=== PATIENT | male | born 1950 | race Caucasian/White ===

== ENCOUNTER → 2018-03-03 | Outpatient (REF) | payer MEDICAID, MEDICARE | LOC: M LAB REF 14:05 | DX: C44.601 Unspecified malignant neoplasm of skin of unspecified upper limb, including shoulder (principal) | CPT/HCPCS: 88305 ==

== ENCOUNTER → 2018-04-06 | Outpatient (REF) | payer MEDICARE, MEDICAID ==
[2018-04-06 17:54] LABS: APPEARANCE, URINE CLEAR (CLEAR); BACTERIA, URINE AUTO NEGATIVE (NEGATIVE); BILIRUBIN, URINE AUTO NEGATIVE (NEGATIVE); BLOOD, URINE BLOOD 1+ (NEGATIVE); COLOR, URINE YELLOW (YELLOW); GLUCOSE, URINE (UA) AUTO 3+ mg/dL (NEGATIVE); KETONE, URINE AUTO NEGATIVE (NEGATIVE); LEUKOCYTE ESTERASE, URINE AUTO TRACE (NEGATIVE); MUCUS, URINE SMALL (NEGATIVE); NITRITE, URINE AUTO NEGATIVE (NEGATIVE); PROTEIN, URINE AUTO NEGATIVE (NEGATIVE); RBC, URINE AUTO 0 /HPF (0-3); SPECIFIC GRAVITY URINE AUTO 1.023 (1.002-1.035); SQUAMOUS EPITHELIAL CELL UR AU 0 /HPF (0-6); WBC, URINE AUTO 1 /HPF (0-3)
== END ==
LOC: M SMT 17:12
DX: R31.0 Gross hematuria (principal)
CPT/HCPCS: 81001

== ENCOUNTER → 2019-09-12 | Outpatient (CLI) | payer MEDICARE, MEDICAID ==
--- NOTE | 2019-09-14 10:40 | REP ---
WHOLE BODY OCTREOTIDE NUCLEAR SCAN WITH SPECT IMAGING: COMPARISON: 10/14/2010 TECHNIQUE: Following the intravenous administration of 6.2 millicuries indium 111 Octreoscan, 4-hours, 24-hour, and 48-hour whole body imaging is performed in multiple projections. SPECT imaging is also performed at 24 hours post injection. Normal expected activity in the liver, spleen, kidneys and bladder is unchanged. There is some colonic activity on the 24-hour and 48-hour images. No new abnormal uptake is seen, with no change since prior study. IMPRESSION: Normal octreotide nuclear scan. No change since the prior study. No abnormal uptake. Electronically Signed by Shaw Lazcano MD 09/14/2019 12:56 P
== END ==
LOC: M RAD 08:27
PROVIDERS: ATTEND Internal Medicine Hematology & Oncology
DX: C4A.9 Merkel cell carcinoma, unspecified (principal)
CPT/HCPCS: 78804; A9572

== ENCOUNTER 2020-03-21 19:19 | Inpatient (IN) | payer MEDICARE, MEDICAID ==
[~2020-03-21] VITALS: Ht 175.3 cm; Wt 107.3 kg
[2020-03-21 21:40] VITALS: BP 172/90
--- NOTE | 2020-03-21 22:23 | HPEPDOC ---
[facility] Medical History & Physical Date of Admission Mar 21, 2020 Date of Service: Mar 21, 2020 Attending Physician: NICOLE MAKI MD History and Physical TIME OF SERVICE: 11:50 PM CHIEF COMPLAINT: Tunnel vision, right facial paracentesis, weakness HISTORY OF PRESENT ILLNESS: This 70-year-old gentleman presented to [facility] with complaints of tunnel vision that started at around 11:30 in the morning. He also noticed that the left side of his face felt heavy, like there was a hand resting on his face, he felt very dizzy, short of breath & weak. His blood pressure was about 173/87 and NIH stroke score was 1. WBCs 5.1, hemoglobin 9, platelets 199, sodium 143, potassium 4.9, chloride 107, bicarbonate 22.8, BUN 71, creatinine 3.32, glucose 232, calcium 8, anion gap 13, Magnesium 1.5 , AST 38, ALT 51, alkaline phosphatase 217, INR 1.2, & troponin was 0.09. The chest xray was unremarkable. CT of the head only confirmed the presence of an old left basal ganglia stroke but no acute process, but he was outside of the tPA window. Providers at [facility] requested transfer for higher level of care. At the time of my assessment the patient reported that his vision had returned to normal, but he continued to have an abnormal sensation at the right side of his face. REVIEW OF SYSTEMS: 12 point review of systems negative except as listed in HPI PAST MEDICAL/ SURGICAL HISTORY: Left basal ganglia CVA/ multiple TIAs Chronic Eliquis use (not sure if he has afib ?) Chronic HTN [place] cell carcinoma IDDM Chronic thrombocytopenia Chronic hypomagnesemia Dyslipidemia Steatohepatitis PUD/GERD CKD unknown stage CAD Obesity Seizure Disorder ? Vertigo Unspecified type of CHF (suspect systolic) Hypomagnesemia Resection of basal cell skin cancer Rotator cuff surgery Appendectomy and cholecystectomy SOCIAL HISTORY: Former smoker FAMILY HISTORY: Diabetes, Arthritis, uterine, prostate and testicular Cancer ALLERGIES: Please see below. HOME MEDICATIONS: Please see below. PHYSICAL EXAMINATION: Vital Signs Date Time Temp Pulse Resp B/P (MAP) Pulse Ox O2 Delivery O2 Flow Rate FiO2 03/21/20 21:40 97.8 81 18 172/90 (117) 99 Room Air GEN: well-nourished / well developed/ NAD INTEGUMENT: not flushed/ stasis dermatitis changes at lower extremities HEENT: lips acyanotic /mucus membranes moist and pink / sclera anicteric CVS: RRR/NMRG/ radial and dorsalis pedis pulses intact / trace lower extremity edema LUNGS: able to speak full sentences without stopping to take a breath / no coughing / lungs are clear to auscultation bilaterally on room air ABDOMEN: Contour ( obese ) / soft & not tender with palpation MSK/EXTREMITIES: NCAT / range of motion intact except at left shoulder were ROM is limited because of pain NEURO: CN 2-12 are intact / speech is not dysarthric / strength is 5/5 except left arm where his ability to flex his shoulder is limited by shoulder pain / no finger to nose dysmetria PSYCH: alert and oriented to person place and time/ able to understand and follow all commands LABORATORY DATA: See HPI IMAGING: See HPI MICROBIOLOGY: Please see below. ASSESSMENT: Mr. Johnson is a 70-year-old with a history of CVA. CKD CAD, hypertension, unspecified CHF, [place] cell cancer and IDDM who presented to [facility] with complaints of tunnel vision, right facial paresthesia and global weakness are likely due to a CVA; he was transferred here for higher level of care. PLAN: 1. Stroke (likely ischemic ) -differential diagnosis recrudescence of old stroke from metabolic stress (ie hypoglycemia) or infection (ie UTI), T[place] paralysis after seizure Plan: admit to PCU / telemetry /fall precautions / keep head of bed elevated to 30 degrees /aspiration precautions/ / SPL/PT/OT consults / c/w Eliquis, ASA and Atorvastatin / permissive hypertension for 24 hours with target blood pressure less than 220/120 / labetalol 5 mg IV PRN if blood pressure is greater than target / f/u lipid panel for ACVD risk score / A1C, TSH, MRI brain, MRI brain, MRA head/neck (no CTA w contrast bc of renal impairment) / bc he is having a CVA while on a NOAC will order a Hypercoag work up with ESR, CRP, JULISSA, Lupus anticoagulant, Protein C & S, Factor V / f/u Echo / the day time team may cons ider Neurology consult 2. DIONY on CKD Plan: Is/Os, daily weights / IVF / f/u PTH, Phopsh, Vitamin D, Uric acid, SPEP, Hep B&C, ulytes for FENa or FEUrea / renal US 3. Hypomagnesemia Plan: f/u repeat Mag 4. Chronic HTN / Unspecified CHF Plan: BP goals as above / day time team to resume home BP meds after 11:30AM (Metoprolol, Valsartan, Metolazone, Torsemide, Isosorbide dinitrate & Hydralazine) / f/u Echo 5. hx of Left basal ganglia CVA/ multiple TIAs Plan: Atorvastatin, ASA 6. Chronic Eliquis use (not sure if he has afib ?) Plan: f/u EKG / c/w Eliquis / day time team may consider calling his PCP to obtain additional med hx 7. Dyslipidemia / CAD Plan: Atorvastatin, ASA, Plavix, Metoprolol 8. IDDM Plan: diabetic diet / f/u accuchecks & A1C / hypoglycemia protocol / sliding scale insulin / hold Januvia & trulicity 9. Seizure Disorder ? Plan: Keppra and Carbamazepine /check carbamazepine levels 10. Vertigo Plan: meclizine 10. PUD/GERD Plan: PPI 11. Obesity BMI 35.0 complicates care Plan: f/u w PCP for sleep apnea screening DVT PROPHYLAXIS: n/a on NOAC DISPOSITION: home after more than 2 midnight's stay Home Medications Scheduled Apixaban (Eliquis) 5 Mg Tablet, 5 MG PO BID Aspirin (Aspirin EC) 81 Mg Tablet.dr, 81 MG PO DAILY Atorvastatin Calcium (Atorvastatin Calcium) 40 Mg Tablet, 40 MG PO DAILY Carbamazepine (Carbamazepine) 200 Mg Tablet, 100 MG PO BID Cetirizine HCl (Cetirizine HCl) 10 Mg Tablet, 10 MG PO DAILY Cholecalciferol (Vitamin D3) (Vitamin D3) 50 Mcg Tablet, 50 MCG PO DAILY Clotrimazole/Betamethasone Dip (Clotrimazole-Betamethasone Crm) 15 Gm Cream..g., 1 DOSE TOP BID USES ON LOWER LEGS BELOW THE KNEE Docusate Sodium (Docusate Sodium) 100 Mg Capsule, 100 MG PO DAILY Dulaglutide (Trulicity) 1.5 Mg/0.5 Ml Pen.injctr, 1.5 MG SC QWEEK WEDNESDAY Gabapentin (Gabapentin) 300 Mg Capsule, 300 MG PO TID Isosorbide Dinitrate (Isosorbide Dinitrate) 20 Mg Tablet, 20 MG PO BID Levetiracetam (Levetiracetam) 750 Mg Tablet, 750 MG PO BID Magnesium Oxide (Magnesium Oxide) 400 Mg Tablet, 400 MG PO DAILY Omeprazole (Omeprazole) 40 Mg Capsule.dr, 40 MG PO BID Pramipexole Di-HCl (Mirapex) 0.25 Mg Tablet, 0.25 MG PO DAILY Sitagliptin Phosphate (Januvia) 100 Mg Tablet, 100 MG PO DAILY Torsemide (Torsemide) 20 Mg Tablet, 40 MG PO BID Valsartan (Valsartan) 160 Mg Tablet, 160 MG PO BID Scheduled PRN Albuterol Sulfate (Proair Hfa) 8.5 Gm Hfa.aer.ad, 2 PUFF INH Q4H PRN for SHORTNESS OF BREATH Cyclobenzaprine HCl (Cyclobenzaprine HCl) 10 Mg Tablet, 10 MG PO TID PRN for MUSCLE SPASMS Diphenoxylate HCl/Atropine (Lomotil 2.5-0.025 mg Tablet) 1 Each Tablet, 1 TAB PO TID PRN for DIARRHEA Meclizine HCl (Meclizine HCl) 25 Mg Tablet, 25 MG PO Q6H PRN for DIZZINESS Nitroglycerin (Nitrostat) 0.4 Mg Tab.subl, 0.4 MG SL NITRO PRN for CHEST PAIN Triamcinolone Acet (Triamcinolone Acetonide 0.1% Crm) 80 Gm Cream..g., 1 DOSE TOP BID PRN for ITCHING Miscellaneous Medications [Patient Comment] MED REC COMPLETED VIA EXTERNAL MED [facility]IST[facility] Allergies Coded Allergies: TAPE (Verified Adverse Reaction, Unknown, (CLOTH TAPE) RASH, 03/22/20) A-FIB/CHADSVASC A-FIB History Current/History of A-Fib/PAF?: No Current PO Anticoag Therapy: No NICOLE MAKI MD Mar 21, 2020 22:23
[2020-03-21] MEDS ORDERED: ACETAMINOPHEN TAB 650MG DOSE (2X325MG) PO PRN (22:30)
[2020-03-21] MEDS ORDERED: MAALOX 30 ML SUSP *UDC PO PRN (22:30)
[2020-03-21] MEDS ORDERED: MOM 30ML SUSPENSION UDC PO PRN (22:30)
[2020-03-22] VITALS: BP 160/69
[2020-03-22 00:39] LABS: HEMATOCRIT 26.5 % (42.0-52.0); HEMOGLOBIN 8.4 g/dl (13.5-17.5); MEAN CORPUSCULAR HEMOGLOBIN 27.9 pg (27.0-33.0); MEAN CORPUSCULAR HGB CONC 31.7 g/dl (32.0-36.5); PLATELET COUNT, AUTOMATED 113 10^3/uL (150-450); RED BLOOD COUNT 3.01 10^6/uL (4.30-6.10); WHITE BLOOD COUNT 5.2 10^3/uL (4.0-10.0)
[2020-03-22 00:52] LABS: INR 1.19; PROTHROMBIN TIME 15.4 SECONDS (12.5-14.3)
[2020-03-22 00:53] LABS: PARTIAL THROMBOPLASTIN TIME 33.6 SECONDS (24.2-38.5)
[2020-03-22 01:14] LABS: ALBUMIN 2.7 GM/DL (3.2-5.2); BILIRUBIN,TOTAL 0.4 MG/DL (0.2-1.0); CALCIUM LEVEL 7.8 MG/DL (8.8-10.2); CREATININE FOR GFR 2.96 MG/DL (0.70-1.30); GLOMERULAR FILTRATION RATE 22.6 (>49); POTASSIUM SERUM 4.6 MEQ/L (3.5-5.1); TOTAL PROTEIN 5.8 GM/DL (6.4-8.2); TROPONIN I 0.09 NG/ML (< 0.10)
[2020-03-22] MEDS ORDERED: LABETALOL 100MG/20ML VIAL IV PRN (02:45)
[2020-03-22 03:12] LABS: MAGNESIUM LEVEL 1.4 MG/DL (1.8-2.4); URIC ACID 9.6 MG/DL (3.5-7.2)
[2020-03-22] MEDS ORDERED: VITA200015 PO (03:27)
[2020-03-22] MEDS ORDERED: ASPI-161 PO (03:27)
[2020-03-22] MEDS ORDERED: CARB1TAB20 PO (03:27)
[2020-03-22] MEDS ORDERED: PROAAER10 INH (03:27)
[2020-03-22] MEDS ORDERED: MAGN400T2 PO (03:27)
[2020-03-22] MEDS ORDERED: MECL-86 PO (03:27)
[2020-03-22] MEDS ORDERED: LEVE750T5 PO (03:27)
[2020-03-22] MEDS ORDERED: MIRA0.254 PO (03:27)
[2020-03-22] MEDS ORDERED: JANU100T PO (03:27)
[2020-03-22] MEDS ORDERED: OMEP-221 PO (03:27)
[2020-03-22] MEDS ORDERED: CYCL-707 PO (03:27)
[2020-03-22] MEDS ORDERED: ELIQ5TAB PO (03:27)
[2020-03-22] MEDS ORDERED: NITR4TASL SL (03:27)
[2020-03-22] MEDS ORDERED: VALS1TAB67 PO (03:27)
[2020-03-22] MEDS ORDERED: ISOS20TAB PO (03:27)
[2020-03-22] MEDS ORDERED: TRUL0.5I SC (03:27)
[2020-03-22] MEDS ORDERED: TORS20TA2 PO (03:27)
[2020-03-22] MEDS ORDERED: CLOT1CRE71 TOP (03:27)
[2020-03-22] MEDS ORDERED: LOMO2.5T PO (03:27)
[2020-03-22] MEDS ORDERED: ATOR40TA75 PO (03:27)
[2020-03-22] MEDS ORDERED: CETI10TA4 PO (03:27)
[2020-03-22] MEDS ORDERED: TRIA1CR80 TOP (03:27)
[2020-03-22] MEDS ORDERED: DOCU100C17 PO (03:27)
[2020-03-22] MEDS ORDERED: HYDR50TA PO (03:27)
[2020-03-22] MEDS ORDERED: PATIENT COMMENT (03:29)
[2020-03-22] MEDS ORDERED: GABA-843 PO (03:30)
[2020-03-22 04:00] VITALS: BP 177/77
[2020-03-22] MEDS ORDERED: MECLIZINE 25 MG TABLET PO PRN (05:00)
[2020-03-22] MEDS ORDERED: ALBUTEROL 90 MCG/ACT 8GM HFA INHALER INH PRN (05:00)
[2020-03-22 05:28] LABS: HEMATOCRIT 26.7 % (42.0-52.0); HEMOGLOBIN 8.5 g/dl (13.5-17.5); MEAN CORPUSCULAR HEMOGLOBIN 28.1 pg (27.0-33.0); MEAN CORPUSCULAR HGB CONC 31.8 g/dl (32.0-36.5); MEAN CORPUSCULAR VOLUME 88.4 fl (80.0-96.0); PLATELET COUNT, AUTOMATED 114 10^3/uL (150-450); RED BLOOD COUNT 3.02 10^6/uL (4.30-6.10); WHITE BLOOD COUNT 5.1 10^3/uL (4.0-10.0)
[2020-03-22 05:46] LABS: HEMOGLOBIN A1c 6.4 %
[2020-03-22 05:48] LABS: ERYTHROCYTE SEDIMENTATION RATE 77 mm/hr (0-20)
[2020-03-22 05:50] LABS: CALCIUM LEVEL 8.3 MG/DL (8.8-10.2); CREATININE FOR GFR 2.95 MG/DL (0.70-1.30); GLOMERULAR FILTRATION RATE 22.7 (>49); POTASSIUM SERUM 4.5 MEQ/L (3.5-5.1)
[2020-03-22 05:52] LABS: TOTAL PROTEIN 6.1 GM/DL (6.4-8.2)
[2020-03-22 05:59] LABS: C REACTIVE PROTEIN QUANTITATIV < 0.30 MG/DL (0.00-0.30); CHOLESTEROL LEVEL 160 MG/DL (<200); CHOLESTEROL RISK RATIO 3.902 (<5); HDL CHOLESTEROL 41 MG/DL (>40); LDL CHOLESTEROL 71 MG/DL (<100); NON-HDL-C 119 MG/DL; TRIGLYCERIDES LEVEL 242 MG/DL (<150)
[2020-03-22 08:00] VITALS: BP 159/71
[2020-03-22 08:03] LABS: TOTAL 25(OH) VITAMIN D 16.9 NG/ML (30.0-100.0)
[2020-03-22 08:14] LABS: HEPATITIS B SURFACE ANTIGEN NEGATIVE (NEGATIVE)
[2020-03-22 08:41] LABS: HEPATITIS B CORE ANTIBODY IGM NEGATIVE (NEGATIVE)
[2020-03-22 08:44] LABS: HEPATITIS A ANTIBODY IGM NEGATIVE (NEGATIVE)
[2020-03-22] MEDS: carBAMazepine 100 MG *1/2* TAB PO SCH ×2 (08:48→21:17)
[2020-03-22] MEDS: GABAPENTIN 300 MG CAP PO SCH ×2 (08:49→21:17)
[2020-03-22] MEDS: levETIRAcetam 250MG TABLET (KEPPRA) PO SCH ×2 (08:49→21:17)
[2020-03-22] MEDS: ASPIRIN 81 MG ENTERIC TAB PO SCH (08:49)
[2020-03-22] MEDS: APIXABAN 5 MG TAB (ELIQUIS) PO SCH ×2 (08:50→21:18)
[2020-03-22] MEDS: MAGNESIUM OXIDE 400 MG TAB (MAG-OX) PO SCH (08:50)
[2020-03-22] MEDS: PANTOPRAZOLE 40MG TAB (PROTONIX) PO SCH (08:50)
[2020-03-22] MEDS: VALSARTAN 80 MG TAB (DIOVAN) PO SCH ×2 (09:00→21:00)
[2020-03-22] MEDS ORDERED: ENOXAPARIN 30MG/0.3ML SYRINGE (J1650 PER 10MG) SC SCH (09:00)
[2020-03-22] MEDS ORDERED: carBAMazepine 200 MG TAB PO SCH (09:00)
[2020-03-22] MEDS: POLYVINYL ALCOHOL OPHTH SOLN 15 ML(LIQUITEARS) OD SCH ×4 (09:00→21:19)
[2020-03-22] MEDS ORDERED: FLUBLOK(EGG FREE)(QUAD)INFLUENZA VACC 0.5ML SYRINGE 18YRS & OLDER IM ONE (09:00)
[2020-03-22] MEDS ORDERED: PREVNAR 13 VACCINE SYRINGE IM ONE (09:00)
[2020-03-22] MEDS ORDERED: PRAMIPEXOLE 0.25 MG TAB PO SCH ×2 (09:00→22:00)
[2020-03-22] MEDS: DOCUSATE SODIUM 100 MG CAP PO SCH (09:00)
[2020-03-22] MEDS ORDERED: CYCLOBENZAPRINE 10MG TABLET PO PRN (09:30)
[2020-03-22] MEDS ORDERED: TRIAMCINOLONE ACET 0.1% CREAM 80 GM TOP PRN (09:30)
--- NOTE | 2020-03-22 09:51 | IPNPDOC ---
Date Seen The patient was seen on 03/22/20. Progress Note GEN: well-nourished / well developed/ NAD INTEGUMENT: not flushed/ stasis dermatitis changes at lower extremities HEENT: lips acyanotic /mucus membranes moist and pink / sclera anicteric CVS: RRR/NMRG/ radial and dorsalis pedis pulses intact / trace lower extremity edema LUNGS: able to speak full sentences without stopping to take a breath / no coughing / lungs are clear to auscultation bilaterally on room air ABDOMEN: Contour ( obese ) / soft & not tender with palpation MSK/EXTREMITIES: NCAT / range of motion intact except at left shoulder were ROM is limited because of pain NEURO: CN 2-12 are intact / speech is not dysarthric / strength is 5/5 except left arm where his ability to flex his shoulder is limited by shoulder pain / no finger to nose dysmetria PSYCH: alert and oriented to person place and time/ able to understand and follow all commands LABORATORY DATA: See HPI IMAGING: See HPI MICROBIOLOGY: Please see below. SUBJECTIVE: c/o headache and right facial numbness which is improved, without changes in vision, or nausea. [id number]. no tunneled vision, b/l ue/le paresthesias or weakness. OBJECTIVE: PHYSICAL EXAMINATION: VITALS: SEE BELOW GEN: no facial droop. decreased sensation in right lateral face involving upper forehead and lower chin. HEENT: face symmetric moist mm EOMI tongue midline lungs: CTAB Heart: sinus RRR S1S2 Abd: soft nt nd +bs x 4 quadrants Ext: no c/c/e LABORATORY DATA/IMAGINGSTUDIES: SEE BELOW ASSESSMENT: Mr. Johnson is a 70-year-old with a history of CVA. CKD CAD, hypertension, unspecified CHF, [place] cell cancer and IDDM who presented to [facility] with complaints of tunnel vision, right facial paresthesia and global weakness are likely due to a CVA; he was transferred here for higher level of care. TIA HTN URGENCY DIONY ON CKD3 HYPOMAGNESEMIA LEFT BASAL GANGLIA CVA DYSLIPIDEMIA CAD OBESITY H/O SEIZURES PLAN: if negative MRI brain, may dc home. passed HSE. continue present meds. EEG. VS, I&O, 24H, Fishbone Vital Signs/I&O Vital Signs Date Time Temp Pulse Resp B/P (MAP) Pulse Ox O2 Delivery O2 Flow Rate FiO2 03/22/20 08:00 96.4 85 18 159/71 (100) 99 Room Air I&O- Last 24 Hours up to 6 AM 03/22/20 05:59 Intake Total 372 ml Output Total 0 ml Balance 372 ml Laboratory Data 24H LABS Laboratory Tests 2 03/22/20 00:30: Nucleated Red Blood Cells % (auto) 0.0, Prothrombin Time 15.4H, Prothromb Time International Ratio 1.19, Activated Partial Thromboplast Time 33.6, Anion Gap 7L, Glomerular Filtration Rate 22.6L, Uric Acid 9.6H, Calcium Level 7.8L, Magnesium Level 1.4L, Total Bilirubin 0.4, Aspartate Amino Transf (AST/SGOT) 36, Alanine Aminotransferase (ALT/SGPT) 43, Alkaline Phosphatase 212H, Troponin I 0.09, Total Protein 5.8L, Albumin 2.7L, Albumin/Globulin Ratio 0.9 03/22/20 05:14: Nucleated Red Blood Cells % (auto) 0.0, Anion Gap 6L, Glomerular Filtration Rate 22.7L, Calcium Level 8.3L, Erythrocyte Sedimentation Rate 77H, Estimated Mean Plasma Glucose 137H, Hemoglobin A1c 6.4, Phosphorus Level 4.0, C-Reactive Protein, Quantitative < 0.30, Total Protein (PEP) 6.1L, Triglycerides Level 242H, Total Cholesterol 160, LDL Cholesterol 71, Non-HDL Cholesterol (LDL + VLDL) 119, Total HDL Cholesterol 41, Cholesterol/HDL Ratio 3.902, 25-Hydroxy Vitamin D Total 16.9L, Thyroid Stimulating Hormone (TSH) 1.340, Carbamazepine (Tegretol) Level 4.3, Hepatitis A IgM Antibody NEGATIVE, Hepatitis B Surface Antigen NEGATIVE, Hepatitis B Core IgM Antibody NEGATIVE, Hepatitis C Antibody Index 0.0 03/22/20 05:15: 03/22/20 07:52: CBC/BMP Laboratory Tests 03/22/20 00:30 03/22/20 05:14 JOHANA REAL MD Mar 22, 2020 09:51
[2020-03-22] MEDS: CETIRIZINE (ZyrTEC) 10 MG TAB PO SCH (10:22)
[2020-03-22] MEDS: SITagliptin 50 MG TAB (JANUVIA) PO SCH (10:22)
[2020-03-22] MEDS: ISOSORBIDE DIN. (ISORDIL) 20 MG TAB PO SCH ×2 (10:22→21:19)
[2020-03-22] MEDS ORDERED: hydrALAZINE 20MG/ML 1ML VIAL (J0360 PER 20MG) IV STA (10:27)
[2020-03-22 10:28] LABS: PTH INTACT 128.2 PG/ML (18.5-88.0)
--- NOTE | 2020-03-22 10:58 | REPVR ---
PROCEDURE INFORMATION: Exam: CT Head Without Contrast Exam date and time: 03/22/2020 10:27 AM Age: 70 years old Clinical indication: Other: HTN urgency sbp>200 headache R/O ich TECHNIQUE: Imaging protocol: Computed tomography of the head without contrast. Radiation optimization: All CT scans at this facility use at least one of these dose optimization techniques: automated exposure control; mA and/or kV adjustment per patient size (includes targeted exams where dose is matched to clinical indication); or iterative reconstruction. COMPARISON: No relevant prior studies available. FINDINGS: Brain: No evolving territorial infarct or intracranial hemorrhage seen. Patchy hypodensities in the deep white matter may reflect chronic small vessel ischemic change. There is a chronic left basal ganglia lacunar infarct. The brain demonstrates mild generalized volume loss. Cerebral ventricles: No ventriculomegaly. Bones/joints: Unremarkable. No acute fracture. Paranasal sinuses: Visualized sinuses are unremarkable. No fluid levels. Mastoid air cells: Visualized mastoid air cells are well aerated. Soft tissues: Unremarkable. IMPRESSION: No acute intracranial abnormality seen. Electronically signed by: Keri Salazar On 03/22/2020 10:57:50 AM
[2020-03-22] MEDS: **hydrALAZINE** 50 MG TAB PO SCH ×2 (11:20→21:18)
[2020-03-22] MEDS: NITROGLYCERIN 2% OINT 1 GM *U/D* PKT TOP SCH ×4 (11:26→21:20)
--- NOTE | 2020-03-22 14:38 | REPVR ---
PROCEDURE INFORMATION: Exam: MR Head Without Contrast Exam date and time: 03/22/2020 1:11 PM Age: 70 years old Clinical indication: Other: TIA TECHNIQUE: Imaging protocol: MR of the head without contrast. COMPARISON: CT Head without contrast 03/22/2020 10:35 AM FINDINGS: Brain: No acute infarct identified on the diffusion-weighted imaging. No parenchymal hemorrhage. The brain demonstrates mild generalized volume loss. Patchy foci of increased signal intensity in the deep and subcortical white matter most likely representing [id number] chronic small vessel ischemic change. There are chronic left basal ganglia lacunar infarcts. Cerebral ventricles: Normal. No ventriculomegaly. Bones/joints: Unremarkable. Paranasal sinuses: Trace ethmoid mucosal thickening. No acute sinusitis. Mastoid air cells: Normal as visualized. No mastoid effusion. Orbits: Unremarkable. Soft tissues: Unremarkable. IMPRESSION: No evidence of acute infarct. Electronically signed by: Keri Salazar On 03/22/2020 14:38:10 PM
--- NOTE | 2020-03-22 14:41 | REPVR ---
PROCEDURE INFORMATION: Exam: MR Angiography Neck Without Contrast Exam date and time: 03/22/2020 1:11 PM Age: 70 years old Clinical indication: Other: TIA TECHNIQUE: Imaging protocol: Magnetic resonance angiography of the neck without contrast. COMPARISON: MRA BRAIN W/O CONTRAST 03/22/2020 12:13 PM FINDINGS: Right common carotid artery: No stenosis. No dissection or occlusion. Right internal carotid artery: No stenosis of the extracranial segment. No dissection or occlusion. Right external carotid artery: No stenosis. No dissection or occlusion of the origin. Right vertebral artery: No stenosis. No dissection or occlusion. Left common carotid artery: No stenosis. No dissection or occlusion. Left internal carotid artery: No stenosis of the extracranial segment. No dissection or occlusion. Left external carotid artery: No stenosis. No dissection or occlusion of the origin. Left vertebral artery: No stenosis. No dissection or occlusion. IMPRESSION: 1. Images are mildly motion degraded. 2. No acute vascular findings or stenoses in the neck. REFERENCES: NASCET CRITERIA. The degree of internal carotid artery stenosis is based on NASCET criteria. Normal is no stenosis. Mild is less than 50% stenosis. Moderate is 50-69% stenosis. Severe is 70% to 99% stenosis. Total occlusion is no detectable patent lumen. Electronically signed by: Keri Salaazr On 03/22/2020 14:41:11 PM
--- NOTE | 2020-03-22 14:47 | REPVR ---
PROCEDURE INFORMATION: Exam: MR Angiogram Head Without Contrast, Arteries Exam date and time: 03/22/2020 1:11 PM Age: 70 years old Clinical indication: Other: TIA TECHNIQUE: Imaging protocol: MR angiogram head without contrast. Exam focused on the arteries. COMPARISON: CT Head without contrast 03/22/2020 10:35 AM FINDINGS: ANTERIOR CIRCULATION: Right internal carotid artery: Intracranial segment is patent with no significant stenosis. No aneurysm. Right middle cerebral artery: No occlusion or significant stenosis. No aneurysm. Right anterior cerebral artery: No occlusion or significant stenosis. No aneurysm. Left internal carotid artery: Intracranial segment is patent with no significant stenosis. No aneurysm. Left middle cerebral artery: No occlusion or significant stenosis. No aneurysm. Left anterior cerebral artery: No occlusion or significant stenosis. No aneurysm. POSTERIOR CIRCULATION: Right vertebral artery: No occlusion or significant stenosis. No aneurysm. Left vertebral artery: No occlusion or significant stenosis. No aneurysm. Basilar artery: No occlusion or significant stenosis. No aneurysm. Right posterior cerebral artery: No occlusion or significant stenosis. No aneurysm. Left posterior cerebral artery: No occlusion or significant stenosis. No aneurysm. IMPRESSION: No major proximal vessel branch occlusion or stenosis seen. Electronically signed by: Keri Salazar On 03/22/2020 14:47:28 PM
[2020-03-22] MEDS ORDERED: SLF 3 ML SYR IV PRN (15:45)
[2020-03-22 16:00] VITALS: BP 194/87
--- NOTE | 2020-03-22 17:20 | REP ---
INDICATION: akl COMPARISON: None TECHNIQUE: Real time huynh scale ultrasound examination using curved array transducer. FINDINGS: Right kidney demonstrates increased central sinus fat and measures 12.6 x 5.7 x 6.1 cm and includes 10 mm lower pole simple cyst. No hydronephrosis, nephrolithiasis, or cystic mass lesion. Left kidney demonstrates increased central sinus fat and measures 14.0 x 5.1 x 6.3 cm with 1.9 cm upper pole simple cyst, 2.2 cm upper pole simple cyst, and 1.5 cm simple peripelvic midpole cyst. No hydronephrosis, nephrolithiasis, or cystic mass lesion. Bladder is grossly unremarkable. IMPRESSION: Evidence for chronic medical renal disease and few scattered bilateral simple appearing cysts. No hydronephrosis. <Electronically signed by Daniel Mena > 03/22/20 [id number]
[2020-03-22 19:08] VITALS: BP 132/80
[2020-03-22 20:00] VITALS: BP 156/70
[2020-03-22] MEDS ORDERED: ATORVASTATIN 20 MG TAB PO SCH (21:00)
[2020-03-22] MEDS ORDERED: PRAVASTATIN 20 MG TAB PO SCH (21:00)
[2020-03-22] MEDS: SLF 3 ML SYR IV SCH (21:21)
[2020-03-23] VITALS: BP 122/74
[2020-03-23] MEDS: NITROGLYCERIN 2% OINT 1 GM *U/D* PKT TOP SCH ×2 (00:20→05:42)
[2020-03-23 04:00] VITALS: BP 144/67
[2020-03-23] MEDS: SLF 3 ML SYR IV SCH (05:43)
[2020-03-23 07:28] VITALS: BP 150/78
[2020-03-23] MEDS: levETIRAcetam 250MG TABLET (KEPPRA) PO SCH (08:51)
[2020-03-23] MEDS: ISOSORBIDE DIN. (ISORDIL) 20 MG TAB PO SCH (08:52)
[2020-03-23] MEDS: **hydrALAZINE** 50 MG TAB PO SCH (08:52)
[2020-03-23] MEDS: SITagliptin 50 MG TAB (JANUVIA) PO SCH (08:53)
[2020-03-23] MEDS: GABAPENTIN 300 MG CAP PO SCH (08:53)
[2020-03-23] MEDS: APIXABAN 5 MG TAB (ELIQUIS) PO SCH (08:53)
[2020-03-23] MEDS: MAGNESIUM OXIDE 400 MG TAB (MAG-OX) PO SCH (08:54)
[2020-03-23] MEDS: CETIRIZINE (ZyrTEC) 10 MG TAB PO SCH (08:54)
[2020-03-23] MEDS: carBAMazepine 100 MG *1/2* TAB PO SCH (08:54)
[2020-03-23] MEDS: DOCUSATE SODIUM 100 MG CAP PO SCH ×2 (08:54→09:00)
[2020-03-23] MEDS: ASPIRIN 81 MG ENTERIC TAB PO SCH (08:54)
[2020-03-23] MEDS: PANTOPRAZOLE 40MG TAB (PROTONIX) PO SCH (08:54)
[2020-03-23] MEDS: POLYVINYL ALCOHOL OPHTH SOLN 15 ML(LIQUITEARS) OD SCH (08:56)
[2020-03-23 09:36] LABS: HEMOGLOBIN 8.7 g/dl (13.5-17.5); MEAN CORPUSCULAR HEMOGLOBIN 28.3 pg (27.0-33.0); MEAN CORPUSCULAR HGB CONC 32.2 g/dl (32.0-36.5); MEAN CORPUSCULAR VOLUME 87.9 fl (80.0-96.0); RED BLOOD COUNT 3.07 10^6/uL (4.30-6.10); WHITE BLOOD COUNT 4.5 10^3/uL (4.0-10.0)
[2020-03-23 09:42] LABS: PLATELET COUNT, AUTOMATED 91 10^3/uL (150-450)
[2020-03-23 10:08] LABS: CREATININE FOR GFR 2.57 MG/DL (0.70-1.30); GLOMERULAR FILTRATION RATE 26.6 (>49); POTASSIUM SERUM 5.1 MEQ/L (3.5-5.1)
[2020-03-23 10:13] VITALS: BP 150/78
[2020-03-23] MEDS: VALSARTAN 80 MG TAB (DIOVAN) PO SCH (10:13)
--- NOTE | 2020-03-23 11:18 | DS.PDOC ---
Discharge Summary General Date of Admission Mar 21, 2020 at 21:40 Date of Discharge 03/23/2020 Discharge Summary DISCHARGE DIAGNOSES: Hypertensive urgency Right facial weakness. CVA ruled out History of multiple TIAs, left basal ganglia CVA Chronic hypertension [place] cell carcinoma IDDM Chronic thrombocytopenia Chronic hypomagnesemia Dyslipidemia Steatohepatitis PUD/GERD CKD stage 3-4 CAD Obesity Seizure Disorder Vertigo Unspecified type of CHF Hypomagnesemia COMPLICATIONS/CHIEF COMPLAINT: TIA. HISTORY COURSE: 68-year-old male with was in his usual state of health until 11:30 in the morning when he complained of left-sided facial numbness, dizziness, shortness of breath and tunnel vision in the ER, CT of the head showed an old left basal ganglia CVA, but no acute process outside the window of TPA. His electrolytes were normal aside from a low magnesium of 1.5. Patient was transferred for MRI services from [facility] emergency room. Patient was found to have hypertensive urgency with systolic pressure 218/105 CT of the head had no intracranial hemorrhage. He was started on his home doses of medications and Nitropaste was given every 4 hourly with resultant improvement with blood p ressure 146/72, and resolution of his neurologic symptoms. MRI, MRA of the brain were negative with no acute CVA or occlusion, respectively. MRA of the carotids showed no significant stenosis. Physical therapy recommended outpatient services. Patient was medically stable and had no issues on telemetry and remained in sinus rhythm. DISCHARGE MEDICATIONS: Please see below. ALLERGIES: Please see below. PHYSICAL EXAMINATION ON DISCHARGE: VITAL SIGNS: Please see below. GENERAL: No facial drooping, speaks in full sentences with fluent speech. No expressive or receptive aphasia HEENT: Tongue is midline. No JVD, thyromegaly. Pupils are equally round, reactive to light and accommodation CARDIOVASCULAR EXAMINATION: S1, S2 regular rate rhythm RESPIRATORY EXAMINATION: Clear to auscultation. Wheezing or rales no rhonchi. Air entry is equal bilaterally ABDOMINAL EXAMINATION: Soft nontender nondistended positive bowel sounds EXTREMITIES: No cyanosis or clubbing NEUROLOGICAL EXAMINATION: Awake, alert, oriented 3. Speech is fluent. Tongue is midline no pronator drift. Negative Babinski bilaterally. Motor function is 5 out of 54 extremities. No expressive or receptive aphasia Decreased sensation on the right side of the face. . No facial asymmetry LABORATORY DATA: Please see below. IMAGING: Exam: MR Head Without Contrast Exam date and time: 03/22/2020 1:11 PM Age: 70 years old Clinical indication: Other: TIA TECHNIQUE: Imaging protocol: MR of the head without contrast. COMPARISON: CT Head without contrast 03/22/2020 10:35 AM FINDINGS: Brain: No acute infarct identified on the diffusion-weighted imaging. No parenchymal hemorrhage. The brain demonstrates mild generalized volume loss. Patchy foci of increased signal intensity in the deep and subcortical white matter most likely representing [id number] chronic small vessel ischemic change. There are chronic left basal ganglia lacunar infarcts. Cerebral ventricles: Normal. No ventriculomegaly. Bones/joints: Unremarkable. Paranasal sinuses: Trace ethmoid mucosal thickening. No acute sinusitis. Mastoid air cells: Normal as visualized. No mastoid effusion. Orbits: Unremarkable. Soft tissues: Unremarkable. IMPRESSION: No evidence of acute infarct. Electronically signed by: Keri Franklin On 03/22/2020 14:38:10 PM DD: KERI FRANKLIN MD 03/22/20 1311 Exam: MR Angiogram Head Without Contrast, Arteries Exam date and time: 03/22/2020 1:11 PM Age: 70 years old Clinical indication: Other: TIA TECHNIQUE: Imaging protocol: MR angiogram head without contrast. Exam focused on the arteries. COMPARISON: CT Head without contrast 03/22/2020 10:35 AM FINDINGS: ANTERIOR CIRCULATION: Right internal carotid artery: Intracranial segment is patent with no significant stenosis. No aneurysm. Right middle cerebral artery: No occlusion or significant stenosis. No aneurysm. Right anterior cerebral artery: No occlusion or significant stenosis. No aneurysm. Left internal carotid artery: Intracranial segment is patent with no significant stenosis. No aneurysm. Left middle cerebral artery: No occlusion or significant stenosis. No aneurysm. Left anterior cerebral artery: No occlusion or significant stenosis. No aneurysm. POSTERIOR CIRCULATION: Right vertebral artery: No occlusion or significant stenosis. No aneurysm. Left vertebral artery: No occlusion or significant stenosis. No aneurysm. Basilar artery: No occlusion or significant stenosis. No aneurysm. Right posterior cerebral artery: No occlusion or significant stenosis. No aneurysm. Left posterior cerebral artery: No occlusion or significant stenosis. No aneurysm. IMPRESSION: No major proximal vessel branch occlusion or stenosis seen. Electronically signed by: eKri Franklin On 03/22/2020 14:47:28 PM Exam: MR Angiography Neck Without Contrast Exam date and time: 03/22/2020 1:11 PM Age: 70 years old Clinical indication: Other: TIA TECHNIQUE: Imaging protocol: Magnetic resonance angiography of the neck without contrast. COMPARISON: MRA BRAIN W/O CONTRAST 03/22/2020 12:13 PM FINDINGS: Right common carotid artery: No stenosis. No dissection or occlusion. Right internal carotid artery: No stenosis of the extracranial segment. No dissection or occlusion. Right external carotid artery: No stenosis. No dissection or occlusion of the origin. Right vertebral artery: No stenosis. No dissection or occlusion. Left common carotid artery: No stenosis. No dissection or occlusion. Left internal carotid artery: No stenosis of the extracranial segment. No dissection or occlusion. Left external carotid artery: No stenosis. No dissection or occlusion of the origin. Left vertebral artery: No stenosis. No dissection or occlusion. IMPRESSION: 1. Images are mildly motion degraded. 2. No acute vascular findings or stenoses in the neck. REFERENCES: NASCET CRITERIA. The degree of internal carotid artery stenosis is based on NASCET criteria. Normal is no stenosis. Mild is less than 50% stenosis. Moderate is 50-69% stenosis. Severe is 70% to 99% stenosis. Total occlusion is no detectable patent lumen. Electronically signed by: Keri Franklin On 03/22/2020 14:41:11 PM NDICATION: akl COMPARISON: None TECHNIQUE: Real time huynh scale ultrasound examination using curved array transducer. FINDINGS: Right kidney demonstrates increased central sinus fat and measures 12.6 x 5.7 x 6.1 cm and includes 10 mm lower pole simple cyst. No hydronephrosis, nephrolithiasis, or cystic mass lesion. Left kidney demonstrates increased central sinus fat and measures 14.0 x 5.1 x 6.3 cm with 1.9 cm upper pole simple cyst, 2.2 cm upper pole simple cyst, and 1.5 cm simple peripelvic midpole cyst. No hydronephrosis, nephrolithiasis, or cystic mass lesion. Bladder is grossly unremarkable. IMPRESSION: Evidence for chronic medical renal disease and few scattered bilateral simple appearing cysts. No hydronephrosis. <Electronically signed by Daniel Mena > 03/22/20 3287 Exam: CT Head Without Contrast Exam date and time: 03/22/2020 10:27 AM Age: 70 years old Clinical indication: Other: HTN urgency sbp>200 headache R/O ich TECHNIQUE: Imaging protocol: Computed tomography of the head without contrast. Radiation optimization: All CT scans at this facility use at least one of these dose optimization techniques: automated exposure control; mA and/or kV adjustment per patient size (includes targeted exams where dose is matched to clinical indication); or iterative reconstruction. COMPARISON: No relevant prior studies available. FINDINGS: Brain: No evolving territorial infarct or intracranial hemorrhage seen. Patchy hypodensities in the deep white matter may reflect chronic small vessel ischemic change. There is a chronic left basal ganglia lacunar infarct. The brain demonstrates mild generalized volume loss. Cerebral ventricles: No ventriculomegaly. Bones/joints: Unremarkable. No acute fracture. Paranasal sinuses: Visualized sinuses are unremarkable. No fluid levels. Mastoid air cells: Visualized mastoid air cells are well aerated. Soft tissues: Unremarkable. IMPRESSION: No acute intracranial abnormality seen. Electronically signed by: Keri Franklin On 03/22/2020 10:57:50 AM TIME SPENT ON DISCHARGE: 30 minutes. Vital Signs/I&Os Vital Signs Date Time Temp Pulse Resp B/P (MAP) Pulse Ox O2 Delivery O2 Flow Rate FiO2 03/23/20 10:13 150/78 03/23/20 07:28 97.9 81 18 97 Room Air I&O- Last 24 Hours up to 6 AM 03/23/20 06:00 Intake Total 2100 ml Output Total 1225 ml Balance 875 ml Laboratory Data Labs 24H Laboratory Tests 2 03/23/20 09:23: Nucleated Red Blood Cells % (auto) 0.0, Immature Platelet Fraction 1.7, Anion Gap 4L, Glomerular Filtration Rate 26.6L, Calcium Level 8.0L CBC/BMP Laboratory Tests 03/23/20 09:23 Discharge Medications Scheduled Apixaban (Eliquis) 5 Mg Tablet, 5 MG PO BID, (Reported) Aspirin (Aspirin EC) 81 Mg Tablet.dr, 81 MG PO DAILY, (Reported) Atorvastatin Calcium (Atorvastatin Calcium) 40 Mg Tablet, 40 MG PO DAILY, (Reported) Carbamazepine (Carbamazepine) 200 Mg Tablet, 100 MG PO BID, (Reported) Cetirizine HCl (Cetirizine HCl) 10 Mg Tablet, 10 MG PO DAILY, (Reported) Cholecalciferol (Vitamin D3) (Vitamin D3) 50 Mcg Tablet, 50 MCG PO DAILY, (Reported) Clotrimazole/Betamethasone Dip (Clotrimazole-Betamethasone Crm) 15 Gm Cream..g., 1 DOSE TOP BID, (Reported) USES ON LOWER LEGS BELOW THE KNEE Docusate Sodium (Docusate Sodium) 100 Mg Capsule, 100 MG PO DAILY, (Reported) Dulaglutide (Trulicity) 1.5 Mg/0.5 Ml Pen.injctr, 1.5 MG SC QWEEK, (Reported) WEDNESDAY Gabapentin (Gabapentin) 300 Mg Capsule, 300 MG PO TID, (Reported) Isosorbide Dinitrate (Isosorbide Dinitrate) 20 Mg Tablet, 20 MG PO BID, (Reported) Levetiracetam (Levetiracetam) 750 Mg Tablet, 750 MG PO BID, (Reported) Magnesium Oxide (Magnesium Oxide) 400 Mg Tablet, 400 MG PO DAILY, (Reported) Omeprazole (Omeprazole) 40 Mg Capsule.dr, 40 MG PO BID, (Reported) Pramipexole Di-HCl (Mirapex) 0.25 Mg Tablet, 0.25 MG PO DAILY, (Reported) Sitagliptin Phosphate (Januvia) 100 Mg Tablet, 100 MG PO DAILY, (Reported) Torsemide (Torsemide) 20 Mg Tablet, 40 MG PO BID, (Reported) Valsartan (Valsartan) 160 Mg Tablet, 160 MG PO BID, (Reported) Scheduled PRN Albuterol Sulfate (Proair Hfa) 8.5 Gm Hfa.aer.ad, 2 PUFF INH Q4H PRN for SHORTNESS OF BREATH, (Reported) Cyclobenzaprine HCl (Cyclobenzaprine HCl) 10 Mg Tablet, 10 MG PO TID PRN for MUSCLE SPASMS, (Reported) Diphenoxylate HCl/Atropine (Lomotil 2.5-0.025 mg Tablet) 1 Each Tablet, 1 TAB PO TID PRN for DIARRHEA, (Reported) Meclizine HCl (Meclizine HCl) 25 Mg Tablet, 25 MG PO Q6H PRN for DIZZINESS, (Reported) Nitroglycerin (Nitrostat) 0.4 Mg Tab.subl, 0.4 MG SL NITRO PRN for CHEST PAIN, (Reported) Triamcinolone Acet (Triamcinolone Acetonide 0.1% Crm) 80 Gm Cream..g., 1 DOSE TOP BID PRN for ITCHING, (Reported) Miscellaneous Medications [Patient Comment] , (Reported) MED REC COMPLETED VIA EXTERNAL MED HISTORY AND PAPERWORK FROM [facility] Allergies Coded Allergies: TAPE (Verified Adverse Reaction, Unknown, (CLOTH TAPE) RASH, 03/22/20) JOHANA REAL MD Mar 23, 2020 11:18
[2020-03-23 13:07] LABS: ANTI DOUBLE STRAND-DNA AB <1 IU/mL (0-9); ANTINUCLEAR ANTIBODIES DIRECT Positive (Negative); RNP ANTIBODIES 1.3 AI (0.0-0.9); SJOGREN'S ANTI SS-A <0.2 AI (0.0-0.9); SJOGREN'S ANTI SS-B <0.2 AI (0.0-0.9); SMITH ANTIBODIES <0.2 AI (0.0-0.9)
--- NOTE | 2020-03-23 14:46 | ECGEPIP ---
[facility] Test Date: 2020-03-22 Pat Name: FERNANDO GARCÍA Department: Room: A7635-70 Gender: Male Oven Loader: : 1950 Requested By: NICOLE MAKI Order Number: [id number] Reading MD: Jeffrey Pederson Measurements Intervals [place] Rate: 82 P: 44 KS: 223 QRS: 1 QRSD: 101 T: 52 QT: 368 QTc: 432 Interpretive Statements SINUS RHYTHM WITH FIRST DEGREE AV BLOCK POSSIBLE PRIOR INFERIOR WALL INFARCT No prior tracing in the system Electronically Signed on 03-23-2020 14:46:02 EST by Jeffrey Pederson
--- NOTE | 2020-03-25 14:30 | EEG ---
DATE: 03/22/2020 DIAGNOSIS: Tunnel vision, rule out seizure. EEG# [id number]. REFERRING PHYSICIAN: Janet Barron MD. HISTORY: Patient is a 70-year-old man with history of stroke, chronic kidney disease, coronary artery disease, insulin-dependent diabetes, who was transferred to [facility] for tunnel vision and right-sided facial numbness, tingling, and generalized weakness. This EEG was done to rule out epileptic potential. He is currently taking aspirin, Eliquis, Keppra, Tegretol, Mirapex, gabapentin, etc. TECHNICAL DESCRIPTION: This digital EEG was recorded by 21-scalp, ear, and two EKG electrodes and was reviewed in bipolar and referential montages following reformatting in 10-20 international electrode placement system. INTERPRETATION: Patient was noted to be in awake and drowsy states during this EEG. Resting and awake background rhythm consisted of 8-9 Hz alpha activity measuring 15-40 microvolts in amplitude, which was symmetric and reactive to eye opening. Attenuation of posterior dominant rhythm was seen during transition to drowsiness. Stage 1 and 2 sleep were reviewed and were symmetric bilaterally. Hyperventilation could not be performed. Photic stimulation remained unremarkable. EKG revealed normal sinus rhythm. No focal, lateralizing, or epileptiform abnormalities were seen. No relevant clinical activity was noted. CONCLUSION: This EEG in awake, drowsy states, stage 1 and 2 sleep is within normal limits. MTDD
== END 2020-03-23 11:50 | disposition home or self-care (01) | DRG 305 ==
LOC: M PCU 21:40
PROVIDERS: ADMIT Internal Medicine; ATTEND General Practice
DX: I16.0 Hypertensive urgency (principal); I50.22 Chronic systolic (congestive) heart failure; N17.9 Acute kidney failure, unspecified; I13.0 Hypertensive heart and chronic kidney disease with heart failure and stage 1 through stage 4 chronic kidney disease, or unspecified chronic kidney disease; E11.22 Type 2 diabetes mellitus with diabetic chronic kidney disease; D69.6 Thrombocytopenia, unspecified; E83.42 Hypomagnesemia; E78.5 Hyperlipidemia, unspecified; K76.0 Fatty (change of) liver, not elsewhere classified; K21.9 Gastro-esophageal reflux disease without esophagitis; K27.9 Peptic ulcer, site unspecified, unspecified as acute or chronic, without hemorrhage or perforation; N18.9 Chronic kidney disease, unspecified; E66.9 Obesity, unspecified; G40.909 Epilepsy, unspecified, not intractable, without status epilepticus; R29.810 Facial weakness; R42 Dizziness and giddiness; Z85.828 Personal history of other malignant neoplasm of skin; Z90.49 Acquired absence of other specified parts of digestive tract; Z87.891 Personal history of nicotine dependence; Z68.35 Body mass index [BMI] 35.0-35.9, adult; Z79.01 Long term (current) use of anticoagulants; Z79.82 Long term (current) use of aspirin; Z79.899 Other long term (current) drug therapy; Z91.048 Other nonmedicinal substance allergy status; Z86.73 Personal history of transient ischemic attack (TIA), and cerebral infarction without residual deficits

== ENCOUNTER → 2020-09-19 | Outpatient (CLI) | payer MEDICARE, MEDICAID ==
[~2020-09-19] MED LIST: ASPI-161 PO; ATOR40TA75 PO; CARB1TAB20 PO; CETI10TA4 PO; CLOT1CRE71 TOP; CYCL-707 PO; DOCU100C17 PO; ELIQ5TAB PO; GABA-282 PO; HYDR50TA PO; ISOS20TAB PO; JANU100T PO; LEVE750T5 PO; LOMO2.5T PO; MAGN400T2 PO; MECL-86 PO; MIRA0.254 PO; NITR4TASL SL; OMEP-221 PO; PATIENT COMMENT; PROAAER10 INH; TORS20TA2 PO; TRIA1CR80 TOP; TRUL0.5I SC; VALS1TAB67 PO; VITA200015 PO
== END ==
LOC: M LABSMTC 09:38
PROVIDERS: ATTEND Anesthesiology
DX: Z01.812 Encounter for preprocedural laboratory examination (principal); Z11.52 Encounter for screening for COVID-19

== ENCOUNTER → 2020-09-24 | Day surgery (SDC) | payer MEDICARE, MEDICAID ==
[~2020-09-24] VITALS: Ht 175.3 cm; Wt 101.2 kg
[~2020-09-24] MED LIST changes: +LIDOCAINE 2% 100MG/5ML SDV (FOR ANES.) As Ordered ONE; +NS 1,000 ML IV ONE; +fentaNYL 100 MCG/2 ML INJECTION (J3010) As Ordered ONE; +propofoL 200 MG/20 ML VIAL As Ordered ONE
--- NOTE | 2020-09-24 11:18 | ROOR ---
Patient Name: Abdiaziz Johnson Procedure Date: 09/24/2020 10:19 AM Date of : 1950 Age: 70 Room: [facility] Gender: Male Note Status: Finalized Procedure: Upper GI endoscopy Indications: Iron deficiency anemia secondary to chronic blood loss Providers: Doug Holland MD Referring MD: Jory BUNN MD Requesting Provider: Medicines: Monitored Anesthesia Care Complications: No immediate complications. Procedure: Pre-Anesthesia Assessment: - Prior to the procedure, a History and Physical was performed, and patient medications and allergies were reviewed. The patient is competent. The risks and benefits of the procedure and the sedation options and risks were discussed with the patient. All questions were answered and informed consent was obtained. Patient identification and proposed procedure were verified by the physician, the nurse and the anesthesiologist in the procedure room. Mental Status Examination: alert and oriented. Airway Examination: normal oropharyngeal airway and neck mobility. Respiratory Examination: clear to auscultation. CV Examination: normal. Prophylactic Antibiotics: The patient does not require prophylactic antibiotics. Prior Anticoagulants: The patient has taken Eliquis (apixaban), last dose was 2 days prior to procedure. ASA Grade Assessment: III - A patient with severe systemic disease. After reviewing the risks and benefits, the patient was deemed in satisfactory condition to undergo the procedure. The anesthesia plan was to use monitored anesthesia care (MAC). Immediately prior to administration of medications, the patient was re-assessed for adequacy to receive sedatives. The heart rate, respiratory rate, oxygen saturations, blood pressure, adequacy of pulmonary ventilation, and response to care were monitored throughout the procedure. The physical status of the patient was re-assessed after the procedure. The Endoscope was introduced through the mouth, and advanced to the second part of duodenum. The upper GI endoscopy was accomplished without difficulty. The patient tolerated the procedure well. Findings: No gross lesions were noted in the entire esophagus. The Z-line was irregular and was found 44 cm from the incisors. Scattered moderate inflammation characterized by erythema, friability and granularity was found in the gastric body and in the gastric antrum. Biopsies were taken with a cold forceps for histology. Biopsies were taken with a cold forceps for Helicobacter pylori testing. Verification of patient identification for the specimen was done by the physician and nurse using the patient's name, date and medical record number. Estimated blood loss was minimal. Diffuse nodular mucosa was found in the duodenal bulb and in the second portion of the duodenum. Biopsies for histology were taken with a cold forceps for evaluation of celiac disease. Biopsies were taken with a cold forceps for histology. Impression: - No gross lesions in esophagus. - Z-line irregular, 44 cm from the incisors. - Gastritis. Biopsied. - Nodular mucosa in the duodenal bulb and in the second portion of the duodenum. Biopsied. Recommendation: - Patient has a contact number available for emergencies. The signs and symptoms of potential delayed complications were discussed with the patient. Return to normal activities tomorrow. Written discharge instructions were provided to the patient. - High fiber diet. - Continue present medications. - Await pathology results. - Follow an antireflux regimen. - Return to GI clinic in [facility] (address [address], [address], [place], [facility]) in 4 -- 6 weeks. Please call GI clinic @ [phone] for apppointment date and time. - Resume Eliquis (apixaban) at prior dose today. Refer to primary physician for further adjustment of therapy. - Return to GI clinic in [facility] (address [address], [address], [place], [address]) in 4 -- 6 weeks. Please call GI clinic @ [phone] for apppointment date and time. - Return to primary care physician. Procedure Code(s): --- Professional --- 71424, Esophagogastroduodenoscopy, flexible, transoral; with biopsy, single or multiple Diagnosis Code(s): --- Professional --- K22.8, Other specified diseases of esophagus K29.70, Gastritis, unspecified, without bleeding K31.89, Other diseases of stomach and duodenum D50.0, Iron deficiency anemia secondary to blood loss (chronic) CPT copyright 2019 [employer]. All rights reserved. The codes documented in this report are preliminary and upon extrusion press adjuster review may be revised to meet current compliance requirements. Doug Holland MD Doug Holland MD 09/24/2020 11:17:22 AM Electronically signed by Doug Holland MD Number of Addenda: 0 Note Initiated On: 09/24/2020 10:19 AM Estimated Blood Loss: Estimated blood loss was minimal.
[2020-09-24 11:38] VITALS: BP 190/88
--- NOTE | 2020-09-24 11:38 | ROOR ---
Patient Name: Abdiaziz Johnson Procedure Date: 09/24/2020 10:20 AM Date of : 1950 Age: 70 Room: [facility] Gender: Male Note Status: Finalized Procedure: Colonoscopy Indications: Iron deficiency anemia secondary to chronic blood loss, Unexplained iron deficiency anemia Providers: Doug Holland MD Referring MD: Jory BUNN MD Requesting Provider: Medicines: Monitored Anesthesia Care Complications: No immediate complications. Procedure: Pre-Anesthesia Assessment: - Prior to the procedure, a History and Physical was performed, and patient medications and allergies were reviewed. The patient is competent. The risks and benefits of the procedure and the sedation options and risks were discussed with the patient. All questions were answered and informed consent was obtained. Patient identification and proposed procedure were verified by the physician, the nurse and the anesthesiologist in the procedure room. Mental Status Examination: alert and oriented. Airway Examination: normal oropharyngeal airway and neck mobility. Respiratory Examination: clear to auscultation. CV Examination: normal. Prophylactic Antibiotics: The patient does not require prophylactic antibiotics. Prior Anticoagulants: The patient has taken Eliquis (apixaban), last dose was 2 days prior to procedure. ASA Grade Assessment: III - A patient with severe systemic disease. After reviewing the risks and benefits, the patient was deemed in satisfactory condition to undergo the procedure. The anesthesia plan was to use monitored anesthesia care (MAC). Immediately prior to administration of medications, the patient was re-assessed for adequacy to receive sedatives. The heart rate, respiratory rate, oxygen saturations, blood pressure, adequacy of pulmonary ventilation, and response to care were monitored throughout the procedure. The physical status of the patient was re-assessed after the procedure. The Colonoscope was introduced through the anus and advanced to the terminal ileum, with identification of the appendiceal orifice and IC valve. The colonoscopy was performed without difficulty. The patient tolerated the procedure well. The quality of the bowel preparation was good. The terminal ileum, ileocecal valve, appendiceal orifice, and rectum were photographed. Scope insertion time was 2 minutes. Scope withdrawal time was 9 minutes. The total duration of the procedure was 12 minutes. Findings: The perianal and digital rectal examinations were normal. The terminal ileum appeared normal. Two sessile polyps were found in the sigmoid colon and transverse colon. The polyps were 4 to 8 mm in size. These polyps were removed with a cold snare. Resection and retrieval were complete. For hemostasis, one hemostatic clip was successfully placed. There was no bleeding at the end of the procedure. Non-bleeding external and internal hemorrhoids were found during retroflexion. The hemorrhoids were medium-sized. Impression: - The examined portion of the ileum was normal. - Two 4 to 8 mm polyps in the sigmoid colon and in the transverse colon, removed with a cold snare. Resected and retrieved. Clip was placed. - Non-bleeding external and internal hemorrhoids. Recommendation: - Patient has a contact number available for emergencies. The signs and symptoms of potential delayed complications were discussed with the patient. Return to normal activities tomorrow. Written discharge instructions were provided to the patient. - High fiber diet. - Continue present medications. - Use original regular Metamucil one tablespoon PO once a day ( preferably after dinner). - Repeat colonoscopy in 5-10 years for surveillance based on pathology results. - Resume Eliquis (apixaban) at prior dose today. Refer to primary physician for further adjustment of therapy. - Return to GI clinic in [facility] (address [address], [address], [place], [facility]) in 4 -- 6 weeks. Please call GI clinic @ [phone] for apppointment date and time. - Return to primary care physician. Procedure Code(s): --- Professional --- 24470, Colonoscopy, flexible; with removal of tumor(s), polyp(s), or other lesion(s) by snare technique Diagnosis Code(s): --- Professional --- K64.8, Other hemorrhoids K63.5, Polyp of colon D50.0, Iron deficiency anemia secondary to blood loss (chronic) D50.9, Iron deficiency anemia, unspecified CPT copyright 2019 [employer]. All rights reserved. The codes documented in this report are preliminary and upon carton making machine operator review may be revised to meet current compliance requirements. Doug Holland MD Doug Holland MD 09/24/2020 11:38:23 AM Electronically signed by Doug Holland MD Number of Addenda: 0 Note Initiated On: 09/24/2020 10:20 AM Estimated Blood Loss: Estimated blood loss was minimal.
== END | disposition home or self-care (01) ==
LOC: M OPP 08:12
PROVIDERS: ATTEND Internal Medicine Gastroenterology
DX: D12.6 Benign neoplasm of colon, unspecified (principal); K64.8 Other hemorrhoids; D50.0 Iron deficiency anemia secondary to blood loss (chronic); K22.8 Other specified diseases of esophagus; K29.70 Gastritis, unspecified, without bleeding; K31.89 Other diseases of stomach and duodenum; R63.4 Abnormal weight loss; G47.30 Sleep apnea, unspecified; Z79.84 Long term (current) use of oral hypoglycemic drugs; Z79.899 Other long term (current) drug therapy; Z91.048 Other nonmedicinal substance allergy status; Z86.73 Personal history of transient ischemic attack (TIA), and cerebral infarction without residual deficits; Z86.79 Personal history of other diseases of the circulatory system; Z95.5 Presence of coronary angioplasty implant and graft
CPT/HCPCS: 43239; 45385; 88305; 88342; J3010